=== PATIENT | male | born 1955 | race Caucasian/White ===

== ENCOUNTER 2016-07-12 16:43 | Emergency (ER) | payer BC ==
[~2016-07-12] VITALS: Ht 175.3 cm; Wt 82.9 kg
[2016-07-12 16:45] VITALS: TEMP 36.5; Ht 175.3 cm; Wt 82.9 kg
[2016-07-12] MEDS ORDERED: SODIUM CHLORIDE 0.9% 1000ML 1,000 ML IV ONE (17:30)
[2016-07-12 17:49] LABS: BASO % 0.4 %; BASO ABS # 0.03 K/uL (0-0.2); COMPLETE YES; EOS % 1.9 %; HEMATOCRIT 39.6 % (42-52); IG% 0.3 %; LYMPH % 31.5 %; LYMPH ABS # 2.34 K/uL (1.2-3.4); MEAN CORPUSCULAR HEMOGLOBIN 33.9 pg (25-34); MEAN CORPUSCULAR HGB CONC 34.6 g/dl (32-36); MEAN PLATELET VOLUME 10.9 fL (7.4-10.4); MONO % 8.7 %; NEUT % 57.2 %; PLATELET COUNT 232 K/uL (130-400); RED BLOOD COUNT 4.04 M/uL (4.7-6.1); WHITE BLOOD COUNT 7.43 K/uL (4.8-10.8)
[2016-07-12 18:06] LABS: BLOOD UREA NITROGEN 9 mg/dl (7-18); BUN/CREATININE RATIO 10.6 (10-20); CALCIUM 8.6 mg/dl (8.5-10.1); CARBON DIOXIDE 26 mmol/L (21-32); CHLORIDE 107 mmol/L (98-107); CREATININE 0.83 mg/dl (0.60-1.40); GLUCOSE 52 mg/dl (70-99); POTASSIUM 3.9 mmol/L (3.5-5.1); SODIUM 141 mmol/L (136-145)
[2016-07-12 18:09] LABS: ALKALINE PHOSPHATASE 48 U/L (45-117); ALT/SGPT 23 U/L (12-78); AST/SGOT 20 U/L (15-37)
[2016-07-12 18:22] LABS: URINE APPEARANCE CLEAR (CLEAR); URINE BILIRUBIN NEG (NEG); URINE COLOR YELLOW; URINE NITRITE NEG (NEG); URINE PH 5.5 (4.5-7.5); UROBILINOGEN NEG (NEG)
[2016-07-12 18:26] LABS: MANUAL MICROSCOPIC REQUIRED? NO; REVIEW REQ? NO
--- NOTE | 2016-07-12 18:35 | DIAGNOSTIC IMAGING REPORT ---
PA CHEST RADIOGRAPH AND UPRIGHT AND SUPINE AP RADIOGRAPHS OF THE ABDOMEN CLINICAL HISTORY: Abdominal pain. COMPARISON STUDY: Chest radiograph September 18, 2012. FINDINGS: Lung volumes are normal. Mild bibasilar opacities favor atelectasis. There is no consolidation to suggest pneumonia. There is a healed fracture of the right seventh rib. Cardiac size is at upper limits of normal. There is no evidence of pulmonary edema. There is no free air. There are few prominent loops of small bowel within left upper quadrant. There is scattered colonic and rectal gas. IMPRESSION: 1. No free air. 2. A few prominent loops of small bowel within left upper quadrant without convincing evidence for small bowel obstruction. 3. No acute cardiopulmonary findings. Electronically signed by: Brian Enciso M.D. 07/12/2016 6:33 PM Dictated Date/Time: 07/12/2016 6:32 PM
[2016-07-12 18:45] VITALS: BP 108/47; PULSE 44; O2SAT 98
--- NOTE | 2016-07-12 21:03 | EMERGENCY ROOM VISIT NOTE ---
ED Visit Note First contact with patient: 16:52 Chief Complaint: Abdominal and lower back pain. History of Present Illness: Mr. Cotton is a 61 year-old white male who ambulates into the ED complaining of bilateral lower quadrant abdominal pain and lumbar back pain. Historically patient reports no significant gastrointestinal diseases or abdominal surgeries. Patient reports ongoing abdominal and back pain for approximately one week. Initially it was mildly gradually increased in intensity. He describes a bandlike distribution of pain that goes around his lower abdomen and his lower back. He can't state where the pain starts but does report its slightly more intense in the lower back. He describes the pain as a "muscle spasm". He reports his pain became much more severe today while he was at work/lifting. Over the last 7 days the pain has waxed and waned in intensity but today became severe and constant. Currently he rates his discomfort 7/10. His pain worsens with flexion of the waist. He has not identified any alleviating factors related to the pain. He has not taken any medications for pain prior to arrival at the hospital. Associated with his pain he reports he has been nauseated but has not vomited. Patient denies fevers, chills, sweats, skin eruptions, skin color changes, upper respiratory tract symptoms, shortness of breath, chest pain, diarrhea, constipation, rectal bleeding, black/tarry stools, urinary symptoms, hematuria, flank pain, genital/rectal paresthesias, bowel and bladder dysfunction, lower extremity weakness/numbness/tingling. Review of Systems: As noted above in history of present illness. All body systems were reviewed and found to be negative as noted above. Past Medical History: Patient denies. Current Medications: Patient denies. Allergies to Medications: Patient denies. Social History: Patient is currently employed; he feels safe in his home environment; he admits to tobacco use. Physical Examination: Vital Signs: Date Time Temp Pulse Resp B/P Pulse Ox O2 Delivery O2 Flow Rate FiO2 07/12/16 18:45 44 20 108/47 98 Room Air 07/12/16 16:45 36.5 54 18 153/85 98 Room Air GENERAL: 61-year-old female in mild to moderate distress due to pain, nontoxic- appearing, afebrile and hemodynamically stable. NEUROLOGICAL: Awake, alert and oriented to person, place and time. Answering questions appropriately and following commands. Normal gait. Good hand eye coordination. SKIN: Warm, dry and pink. No soft tissue eruptions or trauma noted. HEENT: Atraumatic and normocephalic. PERRL. Sclera white and conjunctiva pink. Oral cavity moist and pink. Pharynx is nonerythematous or edematous. Speech normal. No lymphadenopathy. Trachea midline. No jugular venous distention. BACK: No tenderness over the bony thoracic or lumbar spine. Decreased range of motion of the waist due to pain. Negative straight leg raise test. No CVA tenderness. THORAX: Lungs sounds are clear to auscultation and equal bilaterally with symmetrical chest wall. No wheezing, rales or rhonchi. No crepitus, tenderness , subcutaneous air or deformities noted. HEART: Regular rate and rhythm. No gallops, rubs or murmurs are appreciated. ABDOMEN: Flat and soft with mild tenderness throughout the right and left lower quadrant; no prominence of pain over McBurney's point. Positive bowel sounds in all quadrants. No guarding, rigidity or organomegaly. EXTREMITIES: Moves all extremities well on command and with purpose. All distal neurovascular statuses are intact and equal bilaterally. ED Course: Patient is assessed as noted above. Laboratory Testing: Test 07/12/16 17:35 07/12/16 17:40 Range/Units White Blood Count 7.43 4.8-10.8 K/uL Red Blood Count 4.04 4.7-6.1 M/uL Hemoglobin 13.7 14.0-18.0 g/dL Hematocrit 39.6 42-52 % Mean Corpuscular Volume 98.0 80-100 fL Mean Corpuscular Hemoglobin 33.9 25-34 pg Mean Corpuscular Hemoglobin Concent 34.6 32-36 g/dl Platelet Count 232 130-400 K/uL Mean Platelet Volume 10.9 7.4-10.4 fL Neutrophils (%) (Auto) 57.2 % Lymphocytes (%) (Auto) 31.5 % Monocytes (%) (Auto) 8.7 % Eosinophils (%) (Auto) 1.9 % Basophils (%) (Auto) 0.4 % Neutrophils # (Auto) 4.25 1.4-6.5 K/uL Lymphocytes # (Auto) 2.34 1.2-3.4 K/uL Monocytes # (Auto) 0.65 0.11-0.59 K/uL Eosinophils # (Auto) 0.14 0-0.5 K/uL Basophils # (Auto) 0.03 0-0.2 K/uL RDW Standard Deviation 48.7 36.4-46.3 fL RDW Coefficient of Variation 13.5 11.5-14.5 % Immature Granulocyte % (Auto) 0.3 % Immature Granulocyte # (Auto) 0.02 0.00-0.02 K/uL Sodium Level 141 136-145 mmol/L Potassium Level 3.9 3.5-5.1 mmol/L Chloride Level 107 98-107 mmol/L Carbon Dioxide Level 26 21-32 mmol/L Anion Gap 8.0 3-11 mmol/L Blood Urea Nitrogen 9 7-18 mg/dl Creatinine 0.83 0.60-1.40 mg/dl Est Creatinine Clear Calc Drug Dose 93.5 ml/min Estimated GFR () 110.1 Estimated GFR (Non- 95.0 BUN/Creatinine Ratio 10.6 10-20 Random Glucose 52 70-99 mg/dl Calcium Level 8.6 8.5-10.1 mg/dl Total Bilirubin 0.4 0.2-1 mg/dl Direct Bilirubin < 0.1 0-0.2 mg/dl Aspartate Amino Transf (AST/SGOT) 20 15-37 U/L Alanine Aminotransferase (ALT/SGPT) 23 12-78 U/L Alkaline Phosphatase 48 45-117 U/L Total Protein 6.8 6.4-8.2 gm/dl Albumin 4.0 3.4-5.0 gm/dl Lipase 156 73-393 U/L Urine Color YELLOW Urine Appearance CLEAR CLEAR Urine pH 5.5 4.5-7.5 Urine Specific [place] 1.000 1.000-1.030 Urine Protein NEG NEG Urine Glucose (UA) NEG NEG Urine Ketones NEG NEG Urine Occult Blood NEG NEG Urine Nitrite NEG NEG Urine Bilirubin NEG NEG Urine Urobilinogen NEG NEG Urine Leukocyte Esterase NEG NEG Acute abdominal series: Was read by myself and the radiologist showing no acute infiltrates, effusions or pneumothorax. Radiologist notes mild bilateral by basilar atelectasis. Cardiac size is at the upper limits of normal. No evidence of pulmonary edema. No free air on in the diaphragm. Radiologist notes a few prominent loops of small bowel in the left upper quadrant with scattered colonic and rectal gas without convincing evidence of bowel obstruction. Patient was hydrated with normal saline; he was offered pain and antinausea medications and refused. Patient was reassessed multiple times during his stay in the emergency department. Patient's case was reviewed with Dr. Costello; we agreed on diagnostic approach, treatment, disposition and plan. Patient was educated about tonight's findings and instructed on his treatment plan; he verbalizes understanding and agreement with this plan. Clinical Impression: Bilateral lower abdominal pain. Lumbar back pain. Decision-Making: Initially my differential diagnosis I considered bowel obstruction, diverticulitis, constipation, appendicitis, musculoskeletal disorder and other causes. Disposition: Patient discharged home in stable condition; prior to departure he was reassessed and subjectively reported that he was pain and symptom-free. Plan: Patient was encouraged to use 650 mg of acetaminophen as needed for pain; patient did report he is supposed to have shoulder surgery tomorrow and I told him to avoid ibuprofen. Patient was encouraged to follow-up with his family physician as soon as practical. Patient was encouraged return the ED for worsening/uncontrolled pain, fevers, bloody stools, urinary symptoms, genital paresthesias, bowel and bladder dysfunction, lower extremity weakness/numbness/tingling or any new/concerning symptoms.
== END 2016-07-12 19:10 | disposition home or self-care (01) ==
LOC: C.EDB 16:43
DX: R10.31 Right lower quadrant pain (principal); R10.32 Left lower quadrant pain; M54.5 Low back pain; F17.200 Nicotine dependence, unspecified, uncomplicated

== ENCOUNTER → 2016-07-12 | Outpatient (CLI) | payer BC ==
[~2016-07-12] MED LIST: DICL-201 PO
== END | disposition home or self-care (01) ==
LOC: C.CPL 11:10
PROVIDERS: ATTEND Orthopaedic Surgery
DX: Z01.810 Encounter for preprocedural cardiovascular examination (principal)

== ENCOUNTER 2022-08-11 11:52 | Inpatient (IN) ==
--- NOTE | 2022-08-11 11:58 | ED Triage Note ---
Date of Service August 11, 2022 History of Present Illness This patient was briefly evaluated while in triage. An abbreviated physical exam was performed. This patient is a 67-year-old Male that presents to the ED with complaints of feeling miserable. He notes symptoms since Monday. He notes sinus drainage as well. No hx of heart issues. No pain at the present time. He feels like someone sitting on chest. He also notes a cough. Hx of smoking. Physical Exam GENERAL: 67 year old male appearing his state age. In no acute distress. SKIN: No lesions or rashes. HEART: Regular rate and rhythm. LUNGS: Clear to auscultation. NEURO: Alert and oriented. No deficits. MUSCULOSKELETAL: No deformities to inspection of the extremities. PSYCH: Patient is pleasant and answers all questions appropriately. Initial orders for labs and / or imaging were placed and patient was placed in the waiting area until a bed is available. Please see further documentation for the full ED course.
--- NOTE | 2022-08-11 12:52 | Electrocardiogram Report ---
Test Reason : Blood Pressure : / mmHG Vent. Rate : 061 BPM Atrial Rate : 061 BPM P-R Int : 146 ms QRS Dur : 084 ms QT Int : 444 ms P-R-T Axes : 068 050 072 degrees QTc Int : 446 ms Poor data quality, interpretation may be adversely affected Normal sinus rhythm Diffuse Minor Nonspecific T wave abnormality Abnormal ECG When compared with ECG of 12-JUL-2016 11:18, Nonspecific T wave abnormality now evident in Anterolateral leads Confirmed by Venkata العراقي ([id number]) on 08/11/2022 12:52:07 PM Referred By: Confirmed By:Venkata العراقي
[2022-08-11 12:55] LABS: Basophils # (auto) 0.06 K/uL (0-0.2); Basophils % (auto) 0.4 %; Eosinophils # (auto) 0.05 K/uL (0-0.50); Eosinophils % (auto) 0.3 %; Hematocrit (blood only) 41.4 % (42.0-52.0); Hemoglobin 14.7 g/dl (14.0-18.0); Immature Granulocytes # (auto) 0.13 K/uL (0.01-0.20); Immature Granulocytes % (auto) 0.9 %; Lymphocytes # (auto) 1.19 K/uL (1.2-3.4); Lymphocytes % (auto) 8.2 %; Mean Corpuscular Hemoglobin 34.5 pg (25.0-34.0); Mean Corpuscular Hgb Conc 35.5 g/dL (32.0-36.0); Mean Corpuscular Volume 97.2 fL (80.0-100.0); Mean Platelet Volume 10.9 fL (9.4-12.4); Monocytes # (auto) 1.04 K/uL (0.11-0.59); Monocytes % (auto) 7.2 %; Neutrophils # (auto) 11.97 K/uL (1.40-6.50); Platelet Count 282 K/uL (130-400); RDW Coefficient of Variation 12.6 % (11.5-14.5); RDW Standard Deviation 45.1 fL (36.4-46.3); Red Blood Count 4.26 M/uL (4.70-6.10); White Blood Count 14.44 K/ul (4.8-10.8)
--- NOTE | 2022-08-11 12:57 | XRay Report ---
TWO VIEW CHEST CLINICAL HISTORY: Cough. FINDINGS: PA and lateral chest radiographs are compared to study dated 07/12/2016. The cardiomediastin al silhouette is top normal for projection noting atherosclerotic calcification of the thoracic aorta . Emphysema and chronic interstitial thickening is similar to previous. There is bibasilar scarring/a telectasis. The lungs and pleural spaces are otherwise clear. There is no pneumothorax. The bony thor ax appears intact. IMPRESSION: Emphysematous change with no acute cardiopulmonary abnormality identified. ACT 112: Negative or not required by law. Electronically signed by: Santy Zarate M.D. 08/11/2022 12:56 PM
[2022-08-11 13:13] LABS: Albumin Globulin Ratio 1.4 (0.9-2); Albumin Level 4.5 gm/dl (3.4-5.0); BUN Creatinine Ratio 12.2 (10-20); Bilirubin,Total 0.6 mg/dl (0.2-1.0); Creatinine Clr Calc Pharmacy 79.6 ml/min; Est GFR (African American) 102.1 ml/min; Est GFR (Non-African American) 88.1 ml/min; Globulin 3.2 gm/dl (2.5-4.0); Magnesium 1.9 mg/dl (1.7-2.4); Potassium 4.2 mmol/L (3.5-5.1); Total Protein 7.7 gm/dl (6.0-8.3)
[2022-08-11 13:16] LABS: Troponin I High Sensitivity 7.4 pg/ml (0-20)
[2022-08-11 13:30] LABS: Prothrombin Time 10.5 Seconds (9.0-12.0)
[2022-08-11] MEDS ORDERED: AZITHROMYCIN 250 MG TAB PO ONE (17:16)
[2022-08-11] MEDS ORDERED: ALBUT/IPRATROP 3MG/0.5MG NEB 3 ML VIAL NEB STA ×3 (17:16→18:19)
[2022-08-11] MEDS ORDERED: predniSONE 50 MG TAB PO STA (17:17)
[2022-08-11 17:53] LABS: Base Excess VBG 3.4 mEq/L; HCO3 VBG 30 mmol/L; Oxygen Saturation VBG < 60.0 %; PCO2 VBG 50 mmHg (38-50); PO2 VBG 23 mmHg; pH VBG 7.38 (7.36-7.41)
--- NOTE | 2022-08-11 19:19 | History & Physical Report ---
Date of Service August 11, 2022 Assessment & Plan (1) COPD exacerbation: (2) Hypoxia: (3) Tobacco abuse: (4) Alcohol abuse: Plan This is a 67-year-old male who has significant past medical history of CVA, HLD, tobacco use disorder, alcohol abuse who presents to ED due to feeling unwell for almost 1 week. Pt was seen and examined by myself and was discussed with Dr. Huertas. Please refer to Dr. Huertas Addendum for assessment and treatment plan. History of Present Illness Chief Complaint: Feeling unwell for almost 1 week. Primary Care Provider: Andre Marquez DO This is a 67-year-old male who has significant past medical history of CVA, HLD, tobacco use disorder, alcohol abuse who presents to ED due to feeling unw ell for almost 1 week. He complains of productive cough of yellow sputum, post nasal gtt, rhinorrhea and worsening SOB. SOB has progressively worsened even with minimal activity. He denies SOB at rest. He denies f/c/s, dizziness, chest pain, hemoptysis, n/v/d, abd pain, change in bowel or urinary habits. He did have lightheadedness associated with a coughing spell. He has known hx of COPD and smokes 1.5ppd for 50years. Overall appetite is diminished. He does drink 6- 8beers a day. He has hx of CVA in the past but does not take ASA or statin because, "he doesn't want to." In ED pt was found to be hypoxic requiring 2L of O2. CXR revealed emphysematous changes but no consolidation. Lab work revealed a mild leukocytosis and mild hyponatremia of 132. Otherwise unremarkable. He was prescribed prednisone 50mg and azithromycin. Allergies Allergy/AdvReac Type Severity Reaction Status Date / Time No Known Allergies Allergy Verified 08/11/22 19:26 Home Medications Medication Instructions Recorded Confirmed Type albuterol sulfate 90 mcg/actuation 2 inh inhalation Q4H PRN 08/11/22 08/11/22 History aerosol inhaler sob/wheezing fluticasone furoate 100 1 inh inhalation DAILY 08/11/22 08/11/22 History mcg-vilanterol 25 mcg/dose inhalation powder (Breo Ellipta) Past Med/Surg History Medical History Lung disease pt reports no dx for any lung disease, but uses inhaler daily Osteoarthritis Stroke not taking ASA or Statin Surgical History History of arthroscopy bilat knees History of colonoscopy History of repair of rotator cuff right History of tooth extraction Family History Father Cancer Diabetes Mother Cancer Brother Coronary heart disease Sister Coronary heart disease Social History Smoking Status: Current every day smoker packs per day: 2; Second Hand Exposure: No; Do You Dip or Chew Tobacco: No; Tobacco Cessation Education Requested by Patient: No Hx Alcohol Use: Yes Alcohol type: beer Hx Substance Use: No Preferred Language: Romansh Communication Ability: Effective Manager Managed Care Required: No Beliefs That Will Affect Care: None Current Living Situation: Spouse Other Information That Helps Us Care for You: No Feels Safe at Home: Yes Safety Concerns: Feels Safe At This Time Assistive Devices: None Review of Systems Review of Systems: All systems reviewed & are unremarkable except as noted in HPI & below Physical Exam Physical Exam: Constitutional: WD/WN, vitals as above, NAD, sitting up in bed, pleasant, conversing easily Head: Normocephalic, Atraumatic, excessive facial hair Eyes: PERRL, conjunctivae normal, anicteric sclerae ENMT: external ear and nose normal, oropharynx normal Neck: trachea midline, no thyromegaly normal visual inspection Respiratory: decreased bs throughout, lungs clear to auscultation with scattered wheeze, no rales, rhonchi. Normal insp/exp effort, no accessory muscle use Cardiovascular: RRR, no murmur, no edema Vessels: no JVD or carotid bruit Chest: normal inspection of chest Abdomen: normal bowel sounds, soft, nontender, no hepatosplenomegaly Musculoskeletal: no cyanosis or clubbing, extremities motor strength 5/5 Skin: no rashes, warm and dry normal turgor Neurologic: PERRL, EOMI, accommodation nl, no face palsy, no dysarthria CN's II-XI intact bilaterally and moves all extremities Psychiatric: A+Ox3, euthymic affect Lymphatic: no cervical or axillary lymphadenopathy : deferred Results & Data Results & Data ([facility]) Vital Signs (Past 12 Hours) Vital Signs Temp Pulse Pulse Resp BP BP Pulse Ox 08/11/22 18:56 92 08/11/22 18:56 87 L 08/11/22 18:17 23 93 08/11/22 18:16 60 16 144/87 H 86 L 08/11/22 17:28 93 08/11/22 17:27 56 L 19 163/86 H 93 08/11/22 11:55 36.4 C L 73 16 160/116 H 92 O2 Del Method O2 Flow Rate 08/11/22 18:56 Nasal Cannula 2 08/11/22 18:56 Room Air 08/11/22 18:17 Nasal Cannula 2 08/11/22 18:16 Room Air 08/11/22 17:28 Room Air 08/11/22 17:27 Room Air 08/11/22 11:55 Room Air Diagnostic Findings Chest X-Ray 08/11/22 11:59 TWO VIEW CHEST CLINICAL HISTORY: Cough. FINDINGS: PA and lateral chest radiographs are compared to study dated 07/12/2016. The cardiomediastinal silhouette is top normal for projection noting atherosclerotic calcification of the thoracic aorta. Emphysema and chronic interstitial thickening is similar to previous. There is bibasilar scarring/atelectasis. The lungs and pleural spaces are otherwise clear. There is no pneumothorax. The bony thorax appears intact. IMPRESSION: Emphysematous change with no acute cardiopulmonary abnormality identified. ACT 112: Negative or not required by law. Electronically signed by: Santy Zarate M.D. 08/11/2022 12:56 PM Medications Administered Medication List Discontinued Medications Albuterol (Albut/Ipratrop 3mg/0.5mg Neb 3 Ml Vial) 3 ml NEB NOW STA; Protocol Stop: 08/11/22 17:17 Last Admin: 08/11/22 17:34 Dose: 3 ml Documented By: ML Albuterol (Albut/Ipratrop 3mg/0.5mg Neb 3 Ml Vial) 3 ml NEB NOW STA; Protocol Stop: 08/11/22 17:17 Last Admin: 08/11/22 17:34 Dose: 3 ml Documented By: ML Albuterol (Albut/Ipratrop 3mg/0.5mg Neb 3 Ml Vial) 3 ml NEB NOW STA; Protocol Stop: 08/11/22 18:20 Last Admin: 08/11/22 18:39 Dose: 3 ml Documented By: ML Azithromycin (Azithromycin 250 Mg Tab) 500 mg PO NOW ONE Stop: 08/11/22 17:17 Last Admin: 08/11/22 17:32 Dose: 500 mg Documented By: ML Prednisone (Prednisone 50 Mg Tab) 50 mg PO NOW STA Stop: 08/11/22 17:18 Last Admin: 08/11/22 17:33 Dose: 50 mg Documented By: ML ECG Rate (beats per minute): 61 Rhythm: normal sinus Additional Comments: qtc 446ms COVID-19 Results Results COVID-19 Adm Lab Results: RBC 4.26 M/uL (4.70-6.10) L 08/11/22 WBC 14.44 K/ul (4.8-10.8) H 08/11/22 Hgb 14.7 g/dl (14.0-18.0) 08/11/22 Hct 41.4 % (42.0-52.0) L 08/11/22 Plt Count 282 K/uL (130-400) 08/11/22 Neutrophils (%) (Auto) 83.0 % 08/11/22 Lymphocytes (%) (Auto) 8.2 % 08/11/22 Monocytes # (Auto) 1.04 K/uL (0.11-0.59) H 08/11/22 Eosinophils # (Auto) 0.05 K/uL (0-0.50) 08/11/22 Immature Granulocyte % (Auto) 0.9 % 08/11/22 Neutrophils # (Auto) 11.97 K/uL (1.40-6.50) H 08/11/22 Lymphocytes # (Auto) 1.19 K/uL (1.2-3.4) L 08/11/22 Monocytes # (Auto) 1.04 K/uL (0.11-0.59) H 08/11/22 Eosinophils # (Auto) 0.05 K/uL (0-0.50) 08/11/22 Basophils # (Auto) 0.06 K/uL (0-0.2) 08/11/22 Immature Granulocyte # (Auto) 0.13 K/uL (0.01-0.20) 3 Na 132 mmol/L (136-145) L 08/11/22 K 4.2 mmol/L (3.5-5.1) 08/11/22 Cl 99 mmol/L (98-107) 08/11/22 CO2 25 mmol/L (21-32) 08/11/22 Anion Gap 8 (3-11) 08/11/22 BUN 11 mg/dl (6-23) 08/11/22 Creatinine 0.90 mg/dl (0.6-1.4) 08/11/22 BUN/Creatinine Ratio 12.2 (10-20) 08/11/22 Glucose Level 95 mg/dl (70-99(Fasting)) 08/11/22 Ca 9.0 mg/dl (8.5-10.1) 08/11/22 Total Bilirubin 0.6 mg/dl (0.2-1.0) 08/11/22 AST/SGOT 24 U/L (13-39) 08/11/22 ALT/SGPT 22 U/L (7-52) 08/11/22 Alkaline Phosphatase 55 U/L (34-104) 08/11/22 Total Protein 7.7 gm/dl (6.0-8.3) 08/11/22 Albumin 4.5 gm/dl (3.4-5.0) 08/11/22 Globulin 3.2 gm/dl (2.5-4.0) 08/11/22 Albumin/Globulin Ratio 1.4 (0.9-2) 08/11/22 PTT 28.0 Seconds (21.0-31.0) 08/11/22 INR 1.0 (0.9-1.1) 08/11/22 SARS-CoV-2, RNA, NAAT NEGATIVE (NEGATIVE) 08/11/22 ABG pH 7.44 (7.35-7.45) 08/11/22 ABG pCO2 36 mmHg (35-46) 08/11/22 ABG pO2 67 mmHg (80-95) L 08/11/22 ABG HCO3 25 mmol/L (19-24) H 08/11/22 ABG O2 Saturation 94.1 % (90-95) 08/11/22 ABG Base Excess 0.6 mEq/L (-9-1.8) 08/11/22 Chest X-Ray 08/11/22 Code Status & VTE Plan Code Status FULL CODE Supervising Physician Co-Signing Physician Notes IM ATTENDING : Patient seen and examined. History obtained from patient and records. Preceding documentation by Ms. Yolis Mace PA-C reviewed. In addition, patient tremulous during examination. FINAL ASSESSMENT AND PLAN as follows : Acute hypoxemic respiratory failure secondary to COPD exacerbation secondary to complicated bronchitis Alcohol withdrawal History ischemic CVA, medication noncompliance HCV status post Rx Ongoing tobacco abuse Medical telemetry Supplemental O2 Baseline ABG Doxycycline nebs, prednisone course Pulmonary consult if without improvement PASQUALE S, DT precautions Patient agreeable to resuming previous aspirin and statin medications for secondary stroke prevention. Nicotine patch DVT prophylaxis per Lovenox subcu Full code Text document was generated using [employer] voice recognition software. It may contain grammatical or spelling errors. Kindly contact undersigned for clarification of any documentation item in question.
[2022-08-11] MEDS ORDERED: MAGNESIUM SULFATE / D5W 1 GM/100 ML BAG IV ONE (19:37)
[2022-08-11] MEDS ORDERED: SODIUM CHLORIDE 0.9% 1000ML 1,000 ML IV ONE (19:42)
[2022-08-11 20:12] LABS: Base Excess ABG 0.6 mEq/L (-9-1.8); HCO3 ABG 25 mmol/L (19-24); Oxygen Saturation ABG 94.1 % (90-95); PCO2 ABG 36 mmHg (35-46); PO2 ABG 67 mmHg (80-95); pH ABG 7.44 (7.35-7.45)
[2022-08-11] MEDS ORDERED: GABAPENTIN 600 MG TAB PO STA (20:23)
[2022-08-11 20:36] LABS: Allen Test Pos (Pos)
[2022-08-11] MEDS ORDERED: NICOTINE 21 MG/24 HR TDSY TD STA (20:38)
[2022-08-11] MEDS ORDERED: THIAMINE HCL 100 MG in SYRINGE 9 ML IV ONE (20:45)
--- NOTE | 2022-08-11 21:36 | Emergency Department Note ---
History of Present Illness General Chief Complaint: Referred by Doctor Stated Complaint: REF BY , OXYGEN LEVEL LOW Time Seen by Provider: 08/11/22 17:09 History of Present Illness Provider Complaint: shortness of breath and cough Onset (ago): day(s) (6) Consistency/Duration: + progressively worsening Relieved By: + rest Exacerbated By: + exertion and + coughing Context: no recent illness, no choking/aspiration or no recent travel Known history of: COPD Associated symptoms: + fever (Tmax 100), + cough, + wheezing, + sputum pr oduction and + chest congestion; no chest pain, no orthopnea or no hemoptysis Related Data Home oxygen amount: none Home Medications Medication Instructions Recorded Confirmed Type albuterol sulfate 90 mcg/actuation 2 inh inhalation Q4H PRN 08/11/22 08/11/22 History aerosol inhaler sob/wheezing fluticasone furoate 100 1 inh inhalation DAILY 08/11/22 08/11/22 History mcg-vilanterol 25 mcg/dose inhalation powder (Breo Ellipta) Allergies Allergy/AdvReac Type Severity Reaction Status Date / Time No Known Allergies Allergy Verified 08/11/22 19:26 Past Med/Surg History Medical History Lung disease pt reports no dx for any lung disease, but uses inhaler daily Osteoarthritis Stroke not taking ASA or Statin Surgical History History of arthroscopy bilat knees History of colonoscopy History of repair of rotator cuff right History of tooth extraction Family History Father Cancer Diabetes Mother Cancer Brother Coronary heart disease Sister Coronary heart disease Social History Smoking Status: Current every day smoker packs per day: 2; Second Hand Exposure: Yes; Hx Alcohol Use: Yes Alcohol type: beer Hx Substance Use: No Preferred Language: Sri [place]ankan Communication Ability: Effective [employer] Required: No Beliefs That Will Affect Care: None Current Living Situation: Spouse Feels Safe at Home: Yes Assistive Devices: Glasses Physical Exam Vital Signs: Vital Signs - 24 hr 08/11/22 11:55 08/11/22 17:27 08/11/22 17:28 Temperature 36.4 C L Temperature Source Temporal Artery Sc an Pulse Rate 73 Pulse Rate [Apical ] 56 L Pulse Rhythm Regular Respiratory Rate 16 19 Respiratory Effort / Characteristics Non-Labored Sponta neous Respiratory Depth Normal Blood Pressure 160/116 H Blood Pressure [Le ft Arm] 163/86 H Blood Pressure Oanh n 130 Blood Pressure Oanh n [Left Arm] 111 Pulse Oximetry 92 93 93 Oxygen Delivery Me thod Room Air Room Air Room Air Oxygen Flow Rate Sepsis Recent Feve r Within 48 Hours No Sepsis New/Unexpla ined Change in Men keely Status No Sepsis Action Take n by Nursing No Action Required 08/11/22 18:16 08/11/22 18:17 08/11/22 18:56 Temperature Temperature Source Pulse Rate Pulse Rate [Apical ] 60 Pulse Rhythm Respiratory Rate 16 23 Respiratory Effort / Characteristics Respiratory Depth Blood Pressure Blood Pressure [Le ft Arm] 144/87 H Blood Pressure Oanh n Blood Pressure Oanh n [Left Arm] 106 Pulse Oximetry 86 L 93 87 L Oxygen Delivery Me thod Room Air Nasal Cannula Room Air Oxygen Flow Rate 2 Sepsis Recent Feve r Within 48 Hours Sepsis New/Unexpla ined Change in Men keely Status Sepsis Action Take n by Nursing 08/11/22 18:56 08/11/22 20:00 08/11/22 21:11 Temperature Temperature Source Pulse Rate 62 Pulse Rate [Apical ] 61 Pulse Rhythm Respiratory Rate 21 21 Respiratory Effort / Characteristics Respiratory Depth Blood Pressure 149/80 H Blood Pressure [Le ft Arm] 142/85 H Blood Pressure Oanh n Blood Pressure Oanh n [Left Arm] 104 Pulse Oximetry 92 95 93 Oxygen Delivery Me thod Nasal Cannula Nasal Cannula Nasal Cannula Oxygen Flow Rate 2 2 2 Sepsis Recent Feve r Within 48 Hours Sepsis New/Unexpla ined Change in Men keely Status Sepsis Action Take n by Nursing Physical Exam: Physical Exam HENT: Exam performed. - Head: Normocephalic and atraumatic. NECK: Normal range of motion. Neck supple. No JVD present. CV: Normal rate, regular rhythm, normal heart sounds and intact distal pulses. There is no peripheral edema. Palpable radial pulses bue. PULM/CHEST: Diffuse expiratory wheezes. MUSC/SKEL: Normal range of motion. There is no peripheral edema, tenderness or deformity. LYMPH: No cervical adenopathy. NEURO: He is alert and oriented to person, place, and time. He has normal strength. No cranial nerve deficit or sensory deficit. Coordination and gait normal. GCS eye subscore is 4. GCS verbal subscore is 5. GCS motor subscore is 6. Cerebellar tests wnl. SKIN: Skin is warm and dry. He is not diaphoretic. PSYCH: He has a normal mood and affect. Behavior is normal. Judgment and thought content normal. Course Course 1708: The patient was evaluated in room A9. A complete history and physical exam was performed Cardiac monitoring: An order was placed for continuous cardiac monitoring. The monitor shows a rate of 60 with sinus rhythm interpreted by ne 1820: Vital signs stable. Labs within normal limits with exception of leukocytosis of 14.4. VBG within normal limits. COVID-negative. Chest x-ray shows no acute infiltrate. Status post prednisone p.o. azithromycin p.o. and 2 DuoNebs the patient was having increasing wheezing and became hypoxic to 86% on room air. Supplemental oxygen via nasal cannula 2 L was applied which improved the patient's oxygen saturation. Patient be given additional DuoNeb treatment and admitted for COPD exacerbation hypoxia. [facility] hospitalist team will be made aware. Administered Medications Magnesium Sulfate/Dextrose (Magnesium Sulfate / D5w) 1 gm in 100 mls @ 50 mls/hr IV ONE ONE Stop: 08/11/22 21:36 Last Admin: 08/11/22 19:59 Dose: 50 mls/hr Documented By: DARCI Sodium Chloride (Nss 1000ml) 1,000 mls @ 60 mls/hr IV .[id number] ONE Stop: 08/12/22 12:21 Last Admin: 08/11/22 19:59 Dose: 60 mls/hr Documented By: DARCI Discontinued Medications Albuterol (Albut/Ipratrop 3mg/0.5mg Neb 3 Ml Vial) 3 ml NEB NOW STA; Protocol Stop: 08/11/22 17:17 Last Admin: 08/11/22 17:34 Dose: 3 ml Documented By: ML Albuterol (Albut/Ipratrop 3mg/0.5mg Neb 3 Ml Vial) 3 ml NEB NOW STA; Protocol Stop: 08/11/22 17:17 Last Admin: 08/11/22 17:34 Dose: 3 ml Documented By: ML Albuterol (Albut/Ipratrop 3mg/0.5mg Neb 3 Ml Vial) 3 ml NEB NOW STA; Protocol Stop: 08/11/22 18:20 Last Admin: 08/11/22 18:39 Dose: 3 ml Documented By: ML Azithromycin (Azithromycin 250 Mg Tab) 500 mg PO NOW ONE Stop: 08/11/22 17:17 Last Admin: 08/11/22 17:32 Dose: 500 mg Documented By: ML Gabapentin (Gabapentin 600 Mg Tab) 1,200 mg PO NOW STA Stop: 08/11/22 20:24 Last Admin: 08/11/22 20:49 Dose: 1,200 mg Documented By: ML Thiamine HCl 100 mg/ Syringe 10 mls @ 2 mls/min IV ONE ONE Stop: 08/11/22 20:49 Last Admin: 08/11/22 20:49 Dose: 2 mls/min Documented By: ML Nicotine (Nicotine 21 Mg/24 Hr Tdsy) 21 mg TD NOW STA Stop: 08/11/22 20:39 Last Admin: 08/11/22 20:48 Dose: 21 mg Documented By: ML Prednisone (Prednisone 50 Mg Tab) 50 mg PO NOW STA Stop: 08/11/22 17:18 Last Admin: 08/11/22 17:33 Dose: 50 mg Documented By: ML Medical Decision Making Home Medications Current Medication List: was personally reviewed by me Laboratory Data Attestation: I reviewed the patient's lab results. 08/11/22 12:23 08/11/22 12:23 Lab Results 08/11/22 08/11/22 08/11/22 Range/Units 12:23 12:23 12:23 WBC 14.44 H (4.8-10.8) K/ul RBC 4.26 L (4.70-6.10) M/uL Hgb 14.7 (14.0-18.0) g/dl Hct 41.4 L (42.0-52.0) % MCV 97.2 (80.0-100.0) fL MCH 34.5 H (25.0-34.0) pg MCHC 35.5 (32.0-36.0) g/dL RDW Std Deviation 45.1 (36.4-46.3) fL RDW Coeff of Natalie 12.6 (11.5-14.5) % Plt Count 282 (130-400) K/uL MPV 10.9 (9.4-12.4) fL Immature Gran % (Auto) 0.9 % Neut % (Auto) 83.0 % Lymph % (Auto) 8.2 % Travis % (Auto) 7.2 % Eos % (Auto) 0.3 % Baso % (Auto) 0.4 % Neut # (Auto) 11.97 H (1.40-6.50) K/uL Lymph # (Auto) 1.19 L (1.2-3.4) K/uL Travis # (Auto) 1.04 H (0.11-0.59) K/uL Eos # (Auto) 0.05 (0-0.50) K/uL Baso # (Auto) 0.06 (0-0.2) K/uL Immature Gran # (Auto) 0.13 (0.01-0.20) K/uL PT 10.5 (9.0-12.0) Seconds INR 1.0 (0.9-1.1) APTT 28.0 (21.0-31.0) Seconds PTT Ratio 1.0 ABG pH (7.35-7.45) ABG pCO2 (35-46) mmHg ABG pO2 (80-95) mmHg ABG HCO3 (19-24) mmol/L ABG O2 Saturation (90-95) % ABG Base Excess (-9-1.8) mEq/L Troy Test (Pos) VBG pH (7.36-7.41) VBG pCO2 (38-50) mmHg VBG pO2 mmHg VBG HCO3 mmol/L VBG O2 Saturation % VBG Base Excess mEq/L Oxygen Given Sodium 132 L (136-145) mmol/L Potassium 4.2 (3.5-5.1) mmol/L Chloride 99 (98-107) mmol/L Carbon Dioxide 25 (21-32) mmol/L Anion Gap 8 (3-11) BUN 11 (6-23) mg/dl Creatinine 0.90 (0.6-1.4) mg/dl Est Cr Clr Drug Dosing 79.6 ml/min Est GFR ( Amer) 102.1 ml/min Est GFR (Non-Af Amer) 88.1 ml/min BUN/Creatinine Ratio 12.2 (10-20) Glucose 95 (70-99(Fasting)) mg/dl Calcium 9.0 (8.5-10.1) mg/dl Magnesium 1.9 (1.7-2.4) mg/dl Total Bilirubin 0.6 (0.2-1.0) mg/dl AST 24 (13-39) U/L ALT 22 (7-52) U/L Alkaline Phosphatase 55 (34-104) U/L Troponin I High Sens 7.4 (0-20) pg/ml Total Protein 7.7 (6.0-8.3) gm/dl Albumin 4.5 (3.4-5.0) gm/dl Globulin 3.2 (2.5-4.0) gm/dl Albumin/Globulin Ratio 1.4 (0.9-2) Ethyl Alcohol mg/dL (<10.0) mg/dl SARS-CoV-2, RNA, NAAT (NEGATIVE) 08/11/22 08/11/22 08/11/22 Range/Units 17:37 17:37 19:56 WBC (4.8-10.8) K/ul RBC (4.70-6.10) M/uL Hgb (14.0-18.0) g/dl Hct (42.0-52.0) % MCV (80.0-100.0) fL MCH (25.0-34.0) pg MCHC (32.0-36.0) g/dL RDW Std Deviation (36.4-46.3) fL RDW Coeff of Natalie (11.5-14.5) % Plt Count (130-400) K/uL MPV (9.4-12.4) fL Immature Gran % (Auto) % Neut % (Auto) % Lymph % (Auto) % Travis % (Auto) % Eos % (Auto) % Baso % (Auto) % Neut # (Auto) (1.40-6.50) K/uL Lymph # (Auto) (1.2-3.4) K/uL Travis # (Auto) (0.11-0.59) K/uL Eos # (Auto) (0-0.50) K/uL Baso # (Auto) (0-0.2) K/uL Immature Gran # (Auto) (0.01-0.20) K/uL PT (9.0-12.0) Seconds INR (0.9-1.1) APTT (21.0-31.0) Seconds PTT Ratio ABG pH (7.35-7.45) ABG pCO2 (35-46) mmHg ABG pO2 (80-95) mmHg ABG HCO3 (19-24) mmol/L ABG O2 Saturation (90-95) % ABG Base Excess (-9-1.8) mEq/L Troy Test (Pos) VBG pH 7.38 (7.36-7.41) VBG pCO2 50 (38-50) mmHg VBG pO2 23 mmHg VBG HCO3 30 mmol/L VBG O2 Saturation < 60.0 % VBG Base Excess 3.4 mEq/L Oxygen Given Sodium (136-145) mmol/L Potassium (3.5-5.1) mmol/L Chloride (98-107) mmol/L Carbon Dioxide (21-32) mmol/L Anion Gap (3-11) BUN (6-23) mg/dl Creatinine (0.6-1.4) mg/dl Est Cr Clr Drug Dosing ml/min Est GFR ( Amer) ml/min Est GFR (Non-Af Amer) ml/min BUN/Creatinine Ratio (10-20) Glucose (70-99(Fasting)) mg/dl Calcium (8.5-10.1) mg/dl Magnesium (1.7-2.4) mg/dl Total Bilirubin (0.2-1.0) mg/dl AST (13-39) U/L ALT (7-52) U/L Alkaline Phosphatase (34-104) U/L Troponin I High Sens (0-20) pg/ml Total Protein (6.0-8.3) gm/dl Albumin (3.4-5.0) gm/dl Globulin (2.5-4.0) gm/dl Albumin/Globulin Ratio (0.9-2) Ethyl Alcohol mg/dL < 10.0 (<10.0) mg/dl SARS-CoV-2, RNA, NAAT NEGATIVE (NEGATIVE) 08/11/22 Range/Units 19:56 WBC (4.8-10.8) K/ul RBC (4.70-6.10) M/uL Hgb (14.0-18.0) g/dl Hct (42.0-52.0) % MCV (80.0-100.0) fL MCH (25.0-34.0) pg MCHC (32.0-36.0) g/dL RDW Std Deviation (36.4-46.3) fL RDW Coeff of Natalie (11.5-14.5) % Plt Count (130-400) K/uL MPV (9.4-12.4) fL Immature Gran % (Auto) % Neut % (Auto) % Lymph % (Auto) % Travis % (Auto) % Eos % (Auto) % Baso % (Auto) % Neut # (Auto) (1.40-6.50) K/uL Lymph # (Auto) (1.2-3.4) K/uL Travis # (Auto) (0.11-0.59) K/uL Eos # (Auto) (0-0.50) K/uL Baso # (Auto) (0-0.2) K/uL Immature Gran # (Auto) (0.01-0.20) K/uL PT (9.0-12.0) Seconds INR (0.9-1.1) APTT (21.0-31.0) Seconds PTT Ratio ABG pH 7.44 (7.35-7.45) ABG pCO2 36 (35-46) mmHg ABG pO2 67 L (80-95) mmHg ABG HCO3 25 H (19-24) mmol/L ABG O2 Saturation 94.1 (90-95) % ABG Base Excess 0.6 (-9-1.8) mEq/L Troy Test Pos (Pos) VBG pH (7.36-7.41) VBG pCO2 (38-50) mmHg VBG pO2 mmHg VBG HCO3 mmol/L VBG O2 Saturation % VBG Base Excess mEq/L Oxygen Given 2 Sodium (136-145) mmol/L Potassium (3.5-5.1) mmol/L Chloride (98-107) mmol/L Carbon Dioxide (21-32) mmol/L Anion Gap (3-11) BUN (6-23) mg/dl Creatinine (0.6-1.4) mg/dl Est Cr Clr Drug Dosing ml/min Est GFR ( Amer) ml/min Est GFR (Non-Af Amer) ml/min BUN/Creatinine Ratio (10-20) Glucose (70-99(Fasting)) mg/dl Calcium (8.5-10.1) mg/dl Magnesium (1.7-2.4) mg/dl Total Bilirubin (0.2-1.0) mg/dl AST (13-39) U/L ALT (7-52) U/L Alkaline Phosphatase (34-104) U/L Troponin I High Sens (0-20) pg/ml Total Protein (6.0-8.3) gm/dl Albumin (3.4-5.0) gm/dl Globulin (2.5-4.0) gm/dl Albumin/Globulin Ratio (0.9-2) Ethyl Alcohol mg/dL (<10.0) mg/dl SARS-CoV-2, RNA, NAAT (NEGATIVE) Imaging Data Attestation: I personally reviewed and interpreted this imaging study as follows: My Impression: Chest x-ray negative. Airway clear. No pneumothorax. No consolidation. No cardiomegaly or cephalization.. No free air under the diaphragm. No fractures of the skeletal structures. Radiologist's Impression: Chest X-Ray 08/11/22 11:59 TWO VIEW CHEST CLINICAL HISTORY: Cough. FINDINGS: PA and lateral chest radiographs are compared to study dated 07/12/2016. The cardiomediastinal silhouette is top normal for projection noting atherosclerotic calcification of the thoracic aorta. Emphysema and chronic interstitial thickening is similar to previous. There is bibasilar scarring/atelectasis. The lungs and pleural spaces are otherwise clear. There is no pneumothorax. The bony thorax appears intact. IMPRESSION: Emphysematous change with no acute cardiopulmonary abnormality identified. ACT 112: Negative or not required by law. Electronically signed by: Santy Zarate M.D. 08/11/2022 12:56 PM ECG Data Attestation: I personally reviewed and interpreted this ECG as follows: Interpretation: Sinus rhythm with a rate of 61. NE QRS and QTc intervals are within normal hunter its. No ST elevation or ST depression. MDM Narrative Vital signs stable. Labs within normal limits with exception of leukocytosis of 14.4. VBG within normal limits. COVID-negative. Chest x-ray shows no acute infiltrate. Status post prednisone p.o. azithromycin p.o. and 2 DuoNebs the patient was having increasing wheezing and became hypoxic to 86% on room air. Supplemental oxygen via nasal cannula 2 L was applied which improved the patient's oxygen saturation. Patient be given additional DuoNeb treatment and [facility]. Impression & Plan Hypoxia, COPD exacerbation Critical Care Time Critical Care Time: Yes Total Critical Care Time: 60 I have personally spent greater than 60 minutes of critical care time in the direct management of this patient. This includes bedside care, interpretation of diagnostic studies, and testing, discussion with consultants, patient, and family members, and other required patient management activities. This 60 minutes is in excess of all separately billable procedures. Discharge Plan Visit Data Chief Complaint: Referred by Doctor Stated Complaint: REF BY , OXYGEN LEVEL LOW ED Provider: Chong Espinal Discharge Problem: Hypoxia, COPD exacerbation Patient Disposition: Admitted As Inpatient Discharge Instructions Interventions: ED Discharge Assessment Last Done: 08/11/22 21:11 Forms Stand Alone Forms: My Time To Cater Prescriptions Prescriptions: No Action albuterol sulfate 90 mcg/actuation HFA aerosol inhaler 2 inh INHALATION Q4H PRN (Reason: sob/wheezing) fluticasone furoate-vilanterol [Breo Ellipta] 100-25 mcg/dose blister with device 1 inh INHALATION DAILY Referrals Referrals: Andre Marquez DO [Primary Care Provider] -
[2022-08-11] MEDS ORDERED: PROMETHAZINE HCL 12.5 MG in SODIUM CHLORIDE 0.9% 50 ML IV PRN (21:56)
[2022-08-11] MEDS ORDERED: LORazepam 2 MG/1 ML VIAL IV PRN ×2 (21:56)
[2022-08-11] MEDS ORDERED: GABAPENTIN 1200MG ALCOHOL WITHDRAWAL LOAD PO STA (21:56)
[2022-08-11] MEDS ORDERED: ACETAMINOPHEN 325 MG TAB PO PRN (21:56)
[2022-08-11] MEDS ORDERED: Ativan IV Alcohol Withdrawal--Active Protocol IV PRN (21:56)
[2022-08-12] MEDS: GABAPENTIN 600 MG TAB PO SCH ×4 (01:17→23:34)
[2022-08-12] MEDS ORDERED: ALBUT/IPRATROP 3MG/0.5MG NEB 3 ML VIAL ONE (04:54)
[2022-08-12] MEDS: ALBUT/IPRATROP 3MG/0.5MG NEB 3 ML VIAL NEB SCH ×4 (05:11→19:15)
[2022-08-12] MEDS: NICOTINE 21 MG/24 HR TDSY TD SCH (08:08)
[2022-08-12] MEDS: FLUTICASONE/VILANTEROL 100/25MCG 14 PUFFS/INHALER INH SCH (08:09)
[2022-08-12] MEDS: DOXYCYCLINE HYCLATE 100 MG CAP PO SCH ×2 (08:10→20:24)
[2022-08-12] MEDS: predniSONE 20 MG TAB PO SCH (08:10)
[2022-08-12] MEDS: THIAMINE HCL 100 MG TAB PO SCH (08:10)
[2022-08-12] MEDS: FOLIC ACID 1 MG TAB PO SCH (08:11)
[2022-08-12] MEDS: ROSUVASTATIN CALCIUM 5 MG TAB PO SCH (08:11)
[2022-08-12] MEDS: MULTIVITAMIN TAB PO SCH (08:11)
[2022-08-12] MEDS: ASPIRIN 81 MG ECTAB PO SCH (08:11)
[2022-08-12] MEDS: ENOXAPARIN INJ 40 MG/0.4 ML SYR SQ SCH ×2 (08:11→08:15)
[2022-08-12 08:46] LABS: Basophils # (auto) 0.03 K/uL (0-0.2); Basophils % (auto) 0.2 %; Eosinophils # (auto) 0.01 K/uL (0-0.50); Eosinophils % (auto) 0.1 %; Hematocrit (blood only) 37.7 % (42.0-52.0); Hemoglobin 13.2 g/dl (14.0-18.0); Immature Granulocytes % (auto) 0.8 %; Lymphocytes # (auto) 1.17 K/uL (1.2-3.4); Lymphocytes % (auto) 9.3 %; Mean Corpuscular Hemoglobin 33.6 pg (25.0-34.0); Mean Corpuscular Volume 95.9 fL (80.0-100.0); Mean Platelet Volume 11.2 fL (9.4-12.4); Monocytes # (auto) 0.87 K/uL (0.11-0.59); Monocytes % (auto) 6.9 %; Neutrophils # (auto) 10.43 K/uL (1.40-6.50); Neutrophils % (auto) 82.7 %; Platelet Count 280 K/uL (130-400); RDW Coefficient of Variation 12.6 % (11.5-14.5); RDW Standard Deviation 45.2 fL (36.4-46.3); Red Blood Count 3.93 M/uL (4.70-6.10); White Blood Count 12.61 K/ul (4.8-10.8)
[2022-08-12 09:08] LABS: BUN Creatinine Ratio 15.8 (10-20); Calcium 8.8 mg/dl (8.5-10.1); Creatinine Clr Calc Pharmacy 94.3 ml/min; Est GFR (African American) 109.4 ml/min; Est GFR (Non-African American) 94.4 ml/min; Potassium 4.4 mmol/L (3.5-5.1)
[2022-08-12] MEDS: LORazepam 2 MG/1 ML VIAL IV PRN ×2 (12:33→16:38)
--- NOTE | 2022-08-12 16:48 | Hospitalist Progress Note ---
Date of Service August 12, 2022 Assessment & Plan (1) COPD exacerbation: (2) Hypoxia: (3) Tobacco abuse: (4) Alcohol abuse: Plan Present on admission with worsening SOB CXR showedlungs and pleural spaces are otherwise clear. There is no pneumothorax. Received Prednisone and Azithromycin in the ER Currently on Doxycycline and prednisone Will add guaifenesin, flutter valve and incentive spirometry Continue oxygen supplement Alcohol abuse No sign of alcohol withdrawal or DT Continue Gabapentin and Ativan with alcohol withdrawal protocol Counseling on alcohol cessation Continue monitor closely for alcohol withdrawal and DT. Continue thiamine and folic acid Tobacco abuse Continue nicotine patch counseling on tobacco cessation DVT px on Lovenox subq Code status Full code Admission and Anticipated Discharge Date Admission Date: August 11, 2022 Subjective Pt was seen and examined for follow up of SOB Lying in bed with no acute distress Pt said that her SOB sleeping improves Continue to have productive cough Denies any chest pain, palpitation, dizziness and SOB Review of Systems Review of Systems: All systems reviewed & are unremarkable except as noted in Subjective Physical Exam Physical Exam: General- No acute distress Head- atraumatic Eyes- PERRL, EOMI, ENT- oropharynx clear Neck- supple, no JVD Lungs- +coarse BS Heart- regular rhythm; no murmur Abdomen- normal bowel sounds, soft, nontender Extremities- no calf tenderness Neuro- alert, oriented x 3; PERRL, EOMI; no facial palsy; no dysarthria Skin- warm & dry Results & Data Results & Data ([facility]) Vital Signs (Past 12 Hours) Vital Signs Temp Pulse Pulse Pulse Resp BP Pulse Ox 08/12/22 15:52 36.6 C 77 20 131/68 95 08/12/22 15:48 58 L 08/12/22 14:31 77 18 92 08/12/22 11:18 36.9 C 60 18 125/68 92 08/12/22 11:02 77 18 92 08/12/22 09:59 08/12/22 08:07 94 08/12/22 07:36 36.6 C 55 L 18 123/68 90 08/12/22 07:29 57 L 08/12/22 05:14 57 L 16 96 O2 Del Method O2 Flow Rate 08/12/22 15:52 Nasal Cannula 2 08/12/22 15:48 08/12/22 14:31 Nasal Cannula 2 08/12/22 11:18 Nasal Cannula 2 08/12/22 11:02 Nasal Cannula 2 08/12/22 09:59 Nasal Cannula 2 08/12/22 08:07 Nasal Cannula 2 08/12/22 07:36 Nasal Cannula 1 08/12/22 07:29 08/12/22 05:14 Nasal Cannula 2
[2022-08-12] MEDS: guaiFENesin 200 MG TAB PO SCH ×2 (18:04→23:34)
[2022-08-12] MEDS ORDERED: NICOTINE 21 MG/24 HR TDSY TD SCH (21:00)
[2022-08-13] MEDS: ALBUT/IPRATROP 3MG/0.5MG NEB 3 ML VIAL NEB SCH ×4 (05:33→20:04)
[2022-08-13] MEDS: guaiFENesin 200 MG TAB PO SCH ×4 (05:56→23:19)
[2022-08-13] MEDS: predniSONE 20 MG TAB PO SCH (08:14)
[2022-08-13] MEDS: ROSUVASTATIN CALCIUM 5 MG TAB PO SCH (08:14)
[2022-08-13] MEDS: THIAMINE HCL 100 MG TAB PO SCH (08:14)
[2022-08-13] MEDS: FOLIC ACID 1 MG TAB PO SCH (08:14)
[2022-08-13] MEDS: MULTIVITAMIN TAB PO SCH (08:14)
[2022-08-13] MEDS: NICOTINE 21 MG/24 HR TDSY TD SCH (08:16)
[2022-08-13] MEDS: FLUTICASONE/VILANTEROL 100/25MCG 14 PUFFS/INHALER INH SCH (08:16)
[2022-08-13] MEDS: GABAPENTIN 600 MG TAB PO SCH ×2 (08:18→20:49)
[2022-08-13] MEDS: DOXYCYCLINE HYCLATE 100 MG CAP PO SCH ×2 (08:18→20:49)
[2022-08-13] MEDS: ASPIRIN 81 MG ECTAB PO SCH (08:18)
[2022-08-13] MEDS: ENOXAPARIN INJ 40 MG/0.4 ML SYR SQ SCH (09:29)
--- NOTE | 2022-08-13 15:27 | Hospitalist Progress Note ---
Date of Service August 13, 2022 Assessment & Plan (1) COPD exacerbation: (2) Hypoxia: (3) Tobacco abuse: (4) Alcohol abuse: Plan Present on admission with worsening SOB CXR showedlungs and pleural spaces are otherwise clear. There is no pneumothorax. Received Prednisone and Azithromycin in the ER Currently on Doxycycline and prednisone Continue guaifenesin, flutter valve and incentive spirometry Continue oxygen supplement Alcohol abuse No sign of alcohol withdrawal or DT Continue Gabapentin and Ativan with alcohol withdrawal protocol Counseling on alcohol cessation Continue monitor closely for alcohol withdrawal and DT. Continue thiamine and folic acid Tobacco abuse Continue nicotine patch counseling on tobacco cessation DVT px on Lovenox subq Code status Full code Disposition Plan to discharge tomorrow Admission and Anticipated Discharge Date Admission Date: August 11, 2022 Subjective Pt was seen and examined for follow up of SOB Lying in bed with no acute distress watching TV Pt said that he feels alot better He said that cough is improved Denies any chest pain, palpitation, dizziness and SOB Review of Systems Review of Systems: All systems reviewed & are unremarkable except as noted in Subjective Physical Exam Physical Exam: General- No acute distress Head- atraumatic Eyes- PERRL, EOMI, ENT- oropharynx clear Neck- supple, no JVD Lungs- +No wheezing Heart- regular rhythm; no murmur Abdomen- normal bowel sounds, soft, nontender Extremities- no calf tenderness Neuro- alert, oriented x 3; PERRL, EOMI; no facial palsy; no dysarthria Skin- warm & dry Results & Data Results & Data ([facility]) Vital Signs (Past 12 Hours) Vital Signs Temp Pulse Pulse Pulse Resp BP BP 08/13/22 14:23 64 16 08/13/22 12:04 36.5 C 64 20 138/67 08/13/22 11:13 79 16 08/13/22 08:00 08/13/22 07:48 36.5 C 51 L 18 137/76 08/13/22 07:22 59 L 08/13/22 06:00 36.4 C L 55 L 20 126/73 08/13/22 05:36 68 18 Pulse Ox O2 Del Method O2 Flow Rate 08/13/22 14:23 95 Nasal Cannula 2 08/13/22 12:04 91 Nasal Cannula 2 08/13/22 11:13 94 Nasal Cannula 2 02/11/23 08:00 Nasal Cannula 2 08/13/22 07:48 93 Nasal Cannula 2 08/13/22 07:22 08/13/22 06:00 95 Nasal Cannula 2 08/13/22 05:36 96 Nasal Cannula 2
[2022-08-13] MEDS: LORazepam 2 MG/1 ML VIAL IV PRN (19:35)
[2022-08-14] MEDS: guaiFENesin 200 MG TAB PO SCH ×2 (05:36→12:20)
[2022-08-14] MEDS: ALBUT/IPRATROP 3MG/0.5MG NEB 3 ML VIAL NEB SCH ×3 (06:57→14:25)
[2022-08-14] MEDS: DOXYCYCLINE HYCLATE 100 MG CAP PO SCH (07:36)
[2022-08-14] MEDS: GABAPENTIN 600 MG TAB PO SCH (07:36)
[2022-08-14] MEDS: ROSUVASTATIN CALCIUM 5 MG TAB PO SCH (07:36)
[2022-08-14] MEDS: predniSONE 20 MG TAB PO SCH (07:37)
[2022-08-14] MEDS: MULTIVITAMIN TAB PO SCH (07:37)
[2022-08-14] MEDS: THIAMINE HCL 100 MG TAB PO SCH (07:37)
[2022-08-14] MEDS: FOLIC ACID 1 MG TAB PO SCH (07:38)
[2022-08-14] MEDS: ASPIRIN 81 MG ECTAB PO SCH (07:38)
[2022-08-14] MEDS: FLUTICASONE/VILANTEROL 100/25MCG 14 PUFFS/INHALER INH SCH (07:39)
[2022-08-14] MEDS: ENOXAPARIN INJ 40 MG/0.4 ML SYR SQ SCH (07:39)
[2022-08-14] MEDS: NICOTINE 21 MG/24 HR TDSY TD SCH (07:39)
--- NOTE | 2022-08-14 14:43 | Discharge Summary ---
Date of Service August 14, 2022 Admission HPI Per Admitting Provider This is a 67-year-old male who has significant past medical history of CVA, HLD, tobacco use disorder, alcohol abuse who presents to ED due to feeling unwell for almost 1 week. He complains of productive cough of yellow sputum, post nasal gtt, rhinorrhea and worsening SOB. SOB has progressively worsened even with minimal activity. He denies SOB at rest. He denies f/c/s, dizziness, chest pain, hemoptysis, n/v/d, abd pain, change in bowel or urinary habits. He did have lightheadedness associated with a coughing spell. He has known hx of COPD and smokes 1.5ppd for 50years. Overall appetite is diminished. He does drink 6- 8beers a day. He has hx of CVA in the past but does not take ASA or statin because, "he doesn't want to." In ED pt was found to be hypoxic requiring 2L of O2. CXR revealed emphysematous changes but no consolidation. Lab work revealed a mild leukocytosis and mild hyponatremia of 132. Otherwise unremarkable. He was prescribed prednisone 50mg and azithromycin. Admission Exam Per Admitting Provider Constitutional: WD/WN, vitals as above, NAD, sitting up in bed, pleasant, conversing easily Head: Normocephalic, Atraumatic, excessive facial hair Eyes: PERRL, conjunctivae normal, anicteric sclerae ENMT: external ear and nose normal, oropharynx normal Neck: trachea midline, no thyromegaly normal visual inspection Respiratory: decreased bs throughout, lungs clear to auscultation with scattered wheeze, no rales, rhonchi. Normal insp/exp effort, no accessory muscle use Cardiovascular: RRR, no murmur, no edema Vessels: no JVD or carotid bruit Chest: normal inspection of chest Abdomen: normal bowel sounds, soft, nontender, no hepatosplenomegaly Musculoskeletal: no cyanosis or clubbing, extremities motor strength 5/5 Skin: no rashes, warm and dry normal turgor Neurologic: PERRL, EOMI, accommodation nl, no face palsy, no dysarthria CN's II-XI intact bilaterally and moves all extremities Psychiatric: A+Ox3, euthymic affect Lymphatic: no cervical or axillary lymphadenopathy : deferred Principal Diagnosis (1) COPD exacerbation: (2) Hypoxia: (3) Tobacco abuse: (4) Alcohol abuse: Discharge Exam General- No acute distress Head- atraumatic Eyes- PERRL, EOMI, ENT- oropharynx clear Neck- supple, no JVD Lungs- +No wheezing Heart- regular rhythm; no murmur Abdomen- normal bowel sounds, soft, nontender Extremities- no calf tenderness Neuro- alert, oriented x 3; PERRL, EOMI; no facial palsy; no dysarthria Skin- warm & dry Discharge Data Allergies Allergy/AdvReac Type Severity Reaction Status Date / Time No Known Allergies Allergy Verified 08/11/22 19:26 Consultations 08/11/22 18:36 ED Decision to Admit Stat Ordered Studies Laboratory Results WBC 12.61 K/ul (4.8-10.8) H 08/12/22 07:18 RBC 3.93 M/uL (4.70-6.10) L 08/12/22 07:18 Hgb 13.2 g/dl (14.0-18.0) L 08/12/22 07:18 Hct 37.7 % (42.0-52.0) L 08/12/22 07:18 MCV 95.9 fL (80.0-100.0) 08/12/22 07:18 MCH 33.6 pg (25.0-34.0) 08/12/22 07:18 MCHC 35.0 g/dL (32.0-36.0) 08/12/22 07:18 RDW Std Deviation 45.2 fL (36.4-46.3) 08/12/22 07:18 RDW Coeff of Natalie 12.6 % (11.5-14.5) 08/12/22 07:18 Plt Count 280 K/uL (130-400) 08/12/22 07:18 MPV 11.2 fL (9.4-12.4) 08/12/22 07:18 Immature Gran % (Auto) 0.8 % 08/12/22 07:18 Neut % (Auto) 82.7 % 08/12/22 07:18 Lymph % (Auto) 9.3 % 08/12/22 07:18 Campbell % (Auto) 6.9 % 08/12/22 07:18 Eos % (Auto) 0.1 % 08/12/22 07:18 Baso % (Auto) 0.2 % 08/12/22 07:18 Neut # (Auto) 10.43 K/uL (1.40-6.50) H 08/12/22 07:18 Lymph # (Auto) 1.17 K/uL (1.2-3.4) L 08/12/22 07:18 Campbell # (Auto) 0.87 K/uL (0.11-0.59) H 08/12/22 07:18 Eos # (Auto) 0.01 K/uL (0-0.50) 08/12/22 07:18 Baso # (Auto) 0.03 K/uL (0-0.2) 08/12/22 07:18 Immature Gran # (Auto) 0.10 K/uL (0.01-0.20) 08/12/22 07:18 PT 10.5 Seconds (9.0-12.0) 08/11/22 12:23 INR 1.0 (0.9-1.1) 08/11/22 12:23 APTT 28.0 Seconds (21.0-31.0) 08/11/22 12:23 PTT Ratio 1.0 08/11/22 12:23 ABG pH 7.44 (7.35-7.45) 08/11/22 19:56 ABG pCO2 36 mmHg (35-46) 08/11/22 19:56 ABG pO2 67 mmHg (80-95) L 08/11/22 19:56 ABG HCO3 25 mmol/L (19-24) H 08/11/22 19:56 ABG O2 Saturation 94.1 % (90-95) 08/11/22 19:56 ABG Base Excess 0.6 mEq/L (-9-1.8) 08/11/22 19:56 Troy Test Pos (Pos) 08/11/22 19:56 VBG pH 7.38 (7.36-7.41) 08/11/22 17:37 VBG pCO2 50 mmHg (38-50) 08/11/22 17:37 VBG pO2 23 mmHg 08/11/22 17:37 VBG HCO3 30 mmol/L 08/11/22 17:37 VBG O2 Saturation < 60.0 % 08/11/22 17:37 VBG Base Excess 3.4 mEq/L 08/11/22 17:37 Oxygen Given 2 08/11/22 19:56 Sodium 135 mmol/L (136-145) L 08/12/22 07:18 Potassium 4.4 mmol/L (3.5-5.1) 08/12/22 07:18 Chloride 103 mmol/L (98-107) 08/12/22 07:18 Carbon Dioxide 27 mmol/L (21-32) 08/12/22 07:18 Anion Gap 5 (3-11) 08/12/22 07:18 BUN 12 mg/dl (6-23) 08/12/22 07:18 Creatinine 0.76 mg/dl (0.6-1.4) 08/12/22 07:18 Est Cr Clr Drug Dosing 94.3 ml/min 08/12/22 07:18 Est GFR ( Amer) 109.4 ml/min 08/12/22 07:18 Est GFR (Non-Af Amer) 94.4 ml/min 08/12/22 07:18 BUN/Creatinine Ratio 15.8 (10-20) 08/12/22 07:18 Glucose 118 mg/dl (70-99(Fasting)) H 08/12/22 07:18 Calcium 8.8 mg/dl (8.5-10.1) 08/12/22 07:18 Magnesium 1.9 mg/dl (1.7-2.4) 08/11/22 12:23 Total Bilirubin 0.6 mg/dl (0.2-1.0) 08/11/22 12:23 AST 24 U/L (13-39) 08/11/22 12:23 ALT 22 U/L (7-52) 08/11/22 12:23 Alkaline Phosphatase 55 U/L (34-104) 08/11/22 12:23 Troponin I High Sens 7.4 pg/ml (0-20) 08/11/22 12:23 Total Protein 7.7 gm/dl (6.0-8.3) 08/11/22 12:23 Albumin 4.5 gm/dl (3.4-5.0) 08/11/22 12:23 Globulin 3.2 gm/dl (2.5-4.0) 08/11/22 12:23 Albumin/Globulin Ratio 1.4 (0.9-2) 08/11/22 12:23 Ethyl Alcohol mg/dL < 10.0 mg/dl (<10.0) 08/11/22 19:56 SARS-CoV-2, RNA, NAAT NEGATIVE (NEGATIVE) 08/11/22 17:37 Impressions Chest X-Ray 08/11/22 11:59 TWO VIEW CHEST CLINICAL HISTORY: Cough. FINDINGS: PA and lateral chest radiographs are compared to study dated 07/12/2016. The cardiomediastinal silhouette is top normal for projection noting atherosclerotic calcification of the thoracic aorta. Emphysema and chronic interstitial thickening is similar to previous. There is bibasilar s carring/atelectasis. The lungs and pleural spaces are otherwise clear. There is no pneumothorax. The bony thorax appears intact. IMPRESSION: Emphysematous change with no acute cardiopulmonary abnormality identified. ACT 112: Negative or not required by law. Electronically signed by: aSnty Zarate M.D. 08/11/2022 12:56 PM Hospital Course (1) COPD exacerbation: (2) Hypoxia: (3) Tobacco abuse: (4) Alcohol abuse: Plan Present on admission with worsening SOB CXR showedlungs and pleural spaces are otherwise clear. There is no pneumothorax. Received Prednisone and Azithromycin in the ER Currently on Doxycycline and prednisone Continue guaifenesin, flutter valve and incentive spirometry 2 step exercise done and pt does not require any oxygen supplement Alcohol abuse No sign of alcohol withdrawal or DT Continue Gabapentin and Ativan with alcohol withdrawal protocol Counseling on alcohol cessation Continue monitor closely for alcohol withdrawal and DT. Continue thiamine and folic acid Tobacco abuse Continue nicotine patch counseling on tobacco cessation DVT px on Lovenox subq Code status Full code Disposition Plan to discharge tomorrow Total Time Total Time Spent Total Time Spent (In Minutes): 35 minutes Discharge Plan Discharge Items Patient Disposition: Home - Self-Care Reason For Visit: REF BY , OXYGEN LEVEL LOW Discharge Diagnosis: (1) COPD exacerbation: (2) Hypoxia: (3) Tobacco abuse: (4) Alcohol abuse: Activity: Resume your previous activity Non-emergency contact: Primary Care Provider Call non-emergency contact if: you have any medication questions Follow-up/Referrals: Andre Marquez DO [Primary Care Provider] - Diet: Heart Healthy Addtl Attending Provider Instructions: Follow up with your primary care provider within 1 week Continue incentive spirometry and flutter valve Counseling on smoking cessation Counseling on alcohol cessation Seek medical attention if you become shortness of breath Fall precaution Pending Studies at Discharge: No Stand-Alone Forms: My [facility], Smoking Cessation Medications and DC Order Prescriptions: New guaifenesin 200 mg Tablet 200 mg PO Q8H Qty: 15 0RF thiamine HCl (vitamin B1) 100 mg Tablet 100 mg PO QAM Qty: 30 0RF folic acid 1 mg Tablet 1 mg PO QAM Qty: 30 0RF ipratropium-albuterol 0.5 mg-3 mg(2.5 mg base)/3 mL Solution For Nebulization 3 ml NEB QIDR Qty: 90 0RF Continued albuterol sulfate 90 mcg/actuation HFA aerosol inhaler 2 inh INHALATION Q4H PRN (Reason: sob/wheezing) fluticasone furoate-vilanterol [Breo Ellipta] 100-25 mcg/dose blister with device 1 inh INHALATION DAILY rosuvastatin 5 mg tablet 5 mg PO DAILY aspirin 81 mg 81 mg PO DAILY Discharge Orders: Discharge Order (Routine); Ordered 08/14/22 Ordered By: Thelma Díaz Admission Data Admit Date/Time: 08/11/22 20:24 Attending Provider: Thelma Díaz Admit Provider: Thelma Díaz Primary Care Provider: Andre Marquez Other Providers: Cas Huertas Other Interventions: Discharge Summary Assessment (RN) Last Done: 08/14/22 13:10
[2022-08-15] MEDS ORDERED: GABAPENTIN 600 MG TAB PO SCH (08:30)
== END 2022-08-14 15:02 | disposition home or self-care (01) | DRG 192 ==
LOC: ED 11:52 → 2N 20:24